=== PATIENT | female | born 1995 | race African-American/Black ===

== ENCOUNTER 2017-10-05 22:59 | Observation (INO) ==
--- NOTE | 2017-10-05 23:39 | ED ---
History of Present Illness Primary Care Physician: NOT REQUIRED Chief Complaint: contractions History of Present Illness: 21-year-old black female at 35 weeks [facility] presents clinic contractions. She denies bleeding or rupture membranes. heart rate tracing is reactive. Contractions noted every 2-3 minutes that she describes as painful Weeks Gestation:: 35 Para: 3 : 5 - Inpatient Certification If this patient has been admitted as an Inpatient: I certify that the inpatient services were ordered in accordance with Medicare regulations governing the order. This includes certification that hospital inpatient services are reasonable and necessary and in the case of services not specified as inpatient-only under 42 CFR 419.22(n), that they are appropriately provided as inpatient services in accordance to with the 2-midnight benchmark under 43 CFR 412.3(e) Estimated Total Length of Stay (Days): 1 Review of Systems Constitutional: Denies anorexia, Denies body ache(s), Denies chills, Denies daytime sleepiness, Denies excessive sweating, Denies fatigue, Denies fever(s), Denies headache(s), Denies increased appetite, Denies lack of energy, Denies malaise, Denies night sweats, Denies weakness, Denies weight gain, Denies weight loss, Denies other Cardiovascular: Denies bluish discoloration of hand/feet, Denies chest pain, Denies chest pain at rest, Denies chest pain with activity, Denies excessive sweating, Denies fainting, Denies fast heart rate, Denies foot swelling, Denies generalized swelling, Denies irregular heart rhythm, Denies leg pain with activity, Denies leg sores, Denies leg swelling, Denies lightheadedness, Denies radiating jaw, neck or arm pain, Denies rapid, pounding, or irregular heartbeat , Denies shortness of breath, Denies shortness of breath with activity, Denies shortness of breath when lying down, Denies shortness of breath causing sudden awakening, Denies slow heart rate, Denies other Respiratory: Denies change in phlegm color, Denies chest congestion, Denies cough, Denies coughing up blood, Denies excessive phlegm production, Denies pain on inspiration, Denies pain with cough, Denies shortness of breath, Denies shortness of breath with activity, Denies snoring, Denies stridor, Denies wheezing, Denies other Gastrointestinal: Denies abdominal pain, Denies belching, Denies black, tarry stools, Denies bloating, Denies bright, red blood in stools, Denies change in bowel habits, Denies constant urge to pass stool, Denies change in stools, Denies coffee ground vomit, Denies constipation, Denies cramping, Denies difficulty swallowing, Denies excessive passing of gas, Denies feeling full early, Denies heartburn, Denies incontinent of stools, Denies loose stools, Denies nausea, Denies pain with swallowing, Denies vomiting, Denies vomiting blood, Denies other Neurologic: Denies abnormal hearing, Denies abnormal movements, Denies abnormal speech, Denies abnormal walking, Denies behavioral changes, Denies burning sensations, Denies confusion, Denies dizziness, Denies fainting, Denies frequent falls, Denies headache(s), Denies lack of coordination, Denies localized weakness, Denies loss of vision, Denies memory loss, Denies numbness, Denies other visual disturbances, Denies radiating pain, Denies restless legs, Denies convulsions, Denies seizure-like activity, Denies sensory deficit, Denies tingling, Denies tingling/numbness/burning sensations, Denies tremor(s), Denies unsteadiness, Denies weakness, Denies other Medications and Allergies Allergies Allergy/AdvReac Type Severity Reaction Status Date / Time No Known Allergies Allergy Uncoded 04/11/16 09:39 Exam Vital signs: Vital Signs 10/05/17 23:12 10/05/17 23:13 Pulse Rate 84 Respiratory Rate 18 Blood Pressure 108/65 - Constitutional no acute distress - Routine HEENT Exam Head: Present: normocephalic, atraumatic Eye: Present: PERRL - Routine Respiratory Exam Comments: Clear to auscultation normal breath sounds - Routine Cardiovascular Exam Present: RRR - Routine Skin Exam Present: intact - Routine Neurological Exam Present: alert, oriented X3 Assessment and Plan - Diagnosis (1) Uterine contractions during Code(s): O62.2 - Other uterine inertia Status: Acute Plan: Plan admit patient observation, observe mild mother and fetus, observe for cervical change would indicate actual labor , after observation period of approximately 8-12 hours there is no cervical change the patient be discharged home to return for increasing pain, bleeding, leakage of fluid, otherwise see her OB provider Discharge Plan - Physicians Team ED Provider: Irving Hernandez Primary Care Provider: NOT REQUIRED, - Discharge Instructions Print Language: Citizen Of [place]
[2017-10-06] MEDS ORDERED: Sodium Chlor 0.9% Inj 500 ML IV.SIG PRN (01:28)
[2017-10-06] MEDS ORDERED: Naloxone Inj 0.4 MG/ML Vial IV.PUSH PRN (01:28)
[2017-10-06] MEDS ORDERED: Oxytocin 30 Units/500ml Premix 30 UNITS/500 ML BAG IV.SIG ONE (01:28)
[2017-10-06] MEDS ORDERED: fentaNYL Citrate Inj 100 MCG/2 ML Ampul IV.PUSH PRN ×2 (01:28)
[2017-10-06] MEDS ORDERED: Sod Chloride 0.9% Inj 1,000 ML IV.CONT PRN (01:28)
[2017-10-06] MEDS ORDERED: Citric Acid/Sodium Citrate Liq 30 ML UDC PO SCH (01:30)
[2017-10-06 01:44] LABS: Baso % (Auto) 0.4 % (0.0-2.0); Eos # (Auto) 0.1 th/mm3 (0.0-0.4); Eos % (Auto) 1.3 % (0.0-4.0); Hematocrit 34.5 % (35.0-46.0); Hemoglobin 11.6 gm/dL (11.6-15.3); Lymph # (Auto) 2.5 th/mm3 (1.0-4.8); Lymph % (Auto) 24.5 % (9.0-44.0); Mean Corpuscular HGB Conc 33.7 % (32.0-36.0); Mean Corpuscular Hemoglobin 30.2 pg (27.0-34.0); Mean Corpuscular Volume 89.5 fL (80.0-100.0); Mean Platelet Volume 8.1 fL (7.0-11.0); Mono # (Auto) 1.1 th/mm3 (0.0-0.9); Mono % (Auto) 10.5 % (0.0-8.0); Neut # (Auto) 6.4 th/mm3 (1.8-7.7); Neut % (Auto) 63.3 % (16.0-70.0); Platelet Count 223 th/mm3 (150-450); Red Blood Count 3.85 mil/mm3 (4.00-5.30); Red Cell Distribution Width 12.7 % (11.6-17.2); White Blood Count 10.2 th/mm3 (4.0-11.0)
[2017-10-06] MEDS ORDERED: Penicillin G Potassium Inj 5,000,000 UNIT in Sodium Chloride 0.9% Inj 100 ML IV.SIG ONE (02:00)
[2017-10-06 02:41] LABS: Bilirubin,Urine Negative (Negative); Clarity,Urine Hazy (Clear); Color,Urine Yellow (Yellw/Straw); Glucose,Urine (UA) Negative (Negative); Hyaline Casts,Urine 2 /lpf (0-3); Leukocyte Esterase,Urine Trace (Negative); Mucus,Urine Many /lpf (Occasional); Nitrite,Urine Negative (Negative); Specific Gravity,Urine 1.029 (1.002-1.035); Squamous Epithelial Cell,Urine 5 /hpf (0-5)
[2017-10-06 02:54] LABS: Amphetamine Urine With Conf Neg (Neg); Benzodiazepine Urine With Conf Neg (Neg)
[2017-10-06 03:00] LABS: Hepatitis A IgM Antibody Nonreactive (Nonreactive); Hepatitits B Surface Antigen Nonreactive (Nonreactive)
[2017-10-06] MEDS ORDERED: Penicillin G Potassium Inj 2,500,000 UNIT in Sodium Chlor 0.9% Inj 100 ML IV.SIG SCH (06:00)
--- NOTE | 2017-10-06 08:50 | P.OBLABOR ---
Subjective Interval history: Patient is 35 week intrauterine with false labor overnight. Patient was admitted [facility] regularly with cervix was very posterior 4-5 cm dilated. She is to continue to contract but not quite as as much overnight she has had 8 hours plus of observation is made no cervical change. heart rate tracing is reactive. Impression-false labor Plan-plan to discharge patient home today to return for increasing pain, bleeding, leakage of fluid otherwise see her OB provider Objective Vital Signs: Vital Signs - 8 hr 10/06/17 01:30 10/06/17 01:49 10/06/17 04:23 Temperature Pulse Rate Respiratory Rate 18 18 18 Blood Pressure 10/06/17 05:29 10/06/17 05:30 Temperature 98.2 F Pulse Rate 83 Respiratory Rate 17 Blood Pressure 76/53 L Objective: Pelvic Exam: Cervix: [-] Dilatation: [-] Effacement: [-] Station: [-] Presentation: [-] Membranes: [intact or ruptured] Uterine Contractions: [-] FHT's: Category: [-] Baseline: [-] Reactive: [-] Variability: [-] Decels: [-] Assessment and Plan - Diagnosis (1) Uterine contractions during Code(s): O62.2 - Other uterine inertia Status: Acute Plan: Plan admit patient observation, observe mild mother and fetus, observe for cervical change would indicate actual labor , after observation period of approximately 8-12 hours there is no cervical change the patient be discharged home to return for increasing pain, bleeding, leakage of fluid, otherwise see her OB provider
== END 2017-10-06 09:50 | disposition home or self-care (01) ==
LOC: HOBED 22:59 → H2E 22:59
PROVIDERS: ADMIT Obstetrics & Gynecology Maternal & Fetal Medicine; ATTEND Obstetrics & Gynecology Maternal & Fetal Medicine